=== PATIENT | female | born 1955 | race Caucasian/White ===

== ENCOUNTER 2021-01-05 13:37 | Emergency (ER) | payer OTHER ==
[~2021-01-05] VITALS: Ht 170.2 cm; Wt 81.7 kg
[2021-01-05 15:28] LABS: URINE BILIRUBIN NEGATIVE (Negative); URINE BLOOD TRACE (Negative); URINE CLARITY CLOUDY; URINE COLOR YELLOW; URINE GLUCOSE-RANDOM NEGATIVE (Negative); URINE KETONES NEGATIVE (Negative); URINE NITRITE-REFLEX NEGATIVE (Negative); URINE PROTEIN 1+ (Negative)
[2021-01-05 15:29] LABS: URINE LEUKOCYTES-REFLEX 2+ (Negative)
[2021-01-05 15:36] LABS: BACTERIA-REFLEX >30 Many /HPF (None Seen); CASTS None Seen /LPF (None Seen); CRYSTALS None Seen /LPF (None Seen); MUCUS None Seen strn/LPF (None Seen); SQUAMOUS >10 Many /LPF (0-3); URINE RBC 0-2 Rare /HPF (0-2); WBC CLUMPS Few (None Seen)
[2021-01-05 16:49] LABS: AMP/METHAMP POSITIVE (Negative); BARBITURATES Negative (Negative); BENZODIAZEPINES Negative (Negative); COCAINE Negative (Negative); METHADONE Negative (Negative); OPIATES Negative (Negative); PCP Negative (Negative); THC POSITIVE (Negative)
[2021-01-05 16:53] VITALS: BP 123/80
== END 2021-01-05 17:00 | disposition left against medical advice (07) ==
LOC: M.ERS 13:37
PROVIDERS: Emergency Medicine; Physician Assistant
DX: M54.5 Low back pain (principal); G89.29 Other chronic pain; E11.9 Type 2 diabetes mellitus without complications; I10 Essential (primary) hypertension; Z76.5 Malingerer [conscious simulation]; Z88.5 Allergy status to narcotic agent